=== PATIENT | male | born 1975 | race Caucasian/White ===

== ENCOUNTER 2020-09-25 17:56 | Observation (INO) ==
[2020-09-25 18:34] LABS: ABS Basophils 0.2 10^3/ul (0-0.2); ABS Eosinophils 0.1 10^3/ul (0-0.6); ABS Lymphocytes 2.8 10^3/ul (1.0-4.8); ABS Monocytes 0.8 10^3/ul (0-0.8); ABS Neutrophils 6.5 10^3/ul (1.5-7.7); Eosinophil % 1.2 %; Hematocrit 43 % (42-52); Hemoglobin 16.2 g/dL (14.0-18.0); Lymphocyte % 26.9 %; Mean Corpuscular HGB Conc 37 g/dL (31-36); Mean Corpuscular Hemoglobin 34 pg (27-31); Mean Corpuscular Volume 90 fL (80-94); Mean Platelet Volume 9.2 fL (7.4-10.4); Nucleated Red Blood Cells % 0.3; Platelet Count 234 10^3/uL (150-450); Red Blood Count 4.83 10^6 /uL (4.18-5.48); Red Cell Distribution Width 13 % (10-15); White Blood Count 10.3 10^3/uL (3.5-10.8)
[2020-09-25 18:40] LABS: INR 1.01 (0.86-1.15)
[2020-09-25 19:04] LABS: Albumin 4.7 g/dL (3.2-5.2); Albumin/Globulin Ratio 1.4 (1-3); Alkaline Phosphatase 59 U/L (35-149); CO2 Carbon Dioxide 21 mmol/L (22-32); Calcium 10.7 mg/dL (8.6-10.3); EGFR African American 50.4 (>60); EGFR Non-African American 41.6 (>60); Globulin 3.4 g/dL (2-4); Glucose 302 mg/dL (70-100); Total Protein 8.1 g/dL (6.4-8.9)
[2020-09-25 19:08] LABS: ALT 26 U/L (7-52); Blood Urea Nitrogen 29 mg/dL (6-24)
[2020-09-25 20:27] LABS: Potassium, Whole Blood 4.7 mmol/L (3.4-4.5)
[2020-09-25] MEDS ORDERED: HYDROcodone/ACETAMIN 5/325 mg TAB PO PRN (23:27)
[2020-09-25] MEDS ORDERED: NS 0.9% 1000 ml BAG 1,000 ML IV ONE (23:42)
[2020-09-25] MEDS ORDERED: NS 0.9% 1000 ml BAG 1,000 ML IV SCH (23:45)
[2020-09-26] MEDS ORDERED: Dextrose 50% Syringe 50 ml 25 GM/50 ML SYRINGE IV PUSH PRN (00:09)
[2020-09-26 04:14] LABS: Anion Gap 13 mmol/L (2-11); Blood Urea Nitrogen 26 mg/dL (6-24); CO2 Carbon Dioxide 17 mmol/L (22-32); Calcium 9.2 mg/dL (8.6-10.3); Chloride 96 mmol/L (101-111); Cholesterol 346 mg/dL; EGFR African American 67.7 (>60); EGFR Non-African American 55.9 (>60); Glucose 345 mg/dL (70-100); Sodium 126 mmol/L (135-145); Triglycerides 2654 mg/dL
[2020-09-26 04:33] LABS: LDL Cholesterol Direct 43 mg/dL
[2020-09-26 05:05] LABS: Potassium, Whole Blood 4.7 mmol/L (3.4-4.5)
[2020-09-26] MEDS ORDERED: Heparin 5000 UNITS/ML 1 mL VIAL SUBCUT SCH (06:00)
[2020-09-26 07:27] VITALS: BP 145/90
[2020-09-26] MEDS ORDERED: Insulin ISOPH/REG 70/30 SUBCUT SCH (08:00)
[2020-09-26] MEDS ORDERED: DULoxetine DR 30 mg CAP PO SCH (09:00)
[2020-09-26] MEDS ORDERED: Enoxaparin 40 MG/0.4 ML SYR SUBCUT SCH (14:00)
[2020-09-26] MEDS ORDERED: CMCS: ClomiPRAMINE 25 mg TAB (NF) PO SCH (21:00)
== END 2020-09-26 11:10 | disposition home or self-care (01) ==
LOC: ED 17:56 → MEDTELE 17:56
PROVIDERS: ADMIT Internal Medicine; ATTEND Internal Medicine